=== PATIENT | female | born 1980 ===

== ENCOUNTER 2017-12-17 09:32 | Emergency (ER) | payer OTHER ==
[2017-12-17 09:32] VITALS: BMI 22.9
[2017-12-17 09:46] VITALS: TEMP 98.5; O2SAT 100
--- NOTE | 2017-12-17 10:15 | ED PDOC ---
Arrival/HPI - General Chief Complaint: ENT Problem Time Seen by Provider: 12/17/17 10:01 Historian: Patient - History of Present Illness Narrative History of Present Illness (Text): 12/17/17 10:11 37yr old female presents today with sore throat 6 days patient states she was seen at an urgent care center and diagnosed with strep throat 6 days ago. Patient states she was started on clindamycin and she took clindamycin for 4 days without improvement. Patient states 2 days ago she received a phone call from the urgent care center asking her how she was feeling. Patient states she told him she wasn't feeling better so they changed the antibiotic to amoxicillin 875 mg twice a day. Patient states she took the antibiotic for the first time yesterday. Patient presents today stating that she isn't feeling any better. Patient states she has only been taking 1 (200 mg) tablet of Motrin for pain without improvement. Patient denies trismus or drooling. Patient states she is able to swallow. She denies any difficulty with swallowing but states that she has a burning pain while swallowing. Patient also complaining of postnasal drip. Patient denies chest pain or shortness of breath. No other complaints Time/Duration: Other (6 days) Quality: Burning Severity Level: 4 Past Medical History - Provider Review Nursing Documentation Reviewed: Yes - Travel History Have you recently traveled outside [place] w/in the past 3 mons?: No - Infectious Disease Hx of Infectious Diseases: None - Tetanus Immunization Tetanus Immunization: Unknown - Reproductive Menopause: No - Cardiac Hx Cardiac Disorders: No - Pulmonary Hx Respiratory Disorders: No - Neurological Hx Neurological Disorder: No - HEENT Hx HEENT Disorder: No - Renal Hx Renal Disorder: No - Hematological/Oncological Hx Blood Disorders: No - Integumentary Hx Dermatological Disorder: No - Musculoskeletal/Rheumatological Hx Musculoskeletal Disorders: No - Gastrointestinal Hx Gastrointestinal Disorders: No - Genitourinary/Gynecological Hx Genitourinary Disorders: No - Psychiatric Hx Psychophysiologic Disorder: No Hx Substance Use: No - Surgical History Other/Comment: breast implants - Suicidal Assessment Feels Threatened In Home Enviroment: No Family/Social History - Physician Review Nursing Documentation Reviewed: Yes Family/Social History: Unknown Family HX Smoking Status: Current Some Days Smoker Hx Alcohol Use: Yes Hx Substance Use: No Allergies/Home Meds Allergies/Adverse Reactions: Allergies No Known Allergies Allergy (Verified 12/17/17 09:46) Home Medications: Home Meds Medication Instructions Recorded Confirmed Amoxicillin 875 mg PO BID 12/17/17 12/17/17 Review of Systems - Review of Systems Constitutional: absent: Fatigue, Fevers ENT: Sore Throat, Sinus Congestion Respiratory: absent: SOB, Cough Cardiovascular: absent: Chest Pain, Palpitations Gastrointestinal: absent: Abdominal Pain, Nausea, Vomiting Genitourinary Female: absent: Dysuria Skin: absent: Rash, Pruritis Psychiatric: absent: Anxiety, Depression, Suicidal Ideation Physical Exam Vital Signs Reviewed: Yes Vital Signs Temp Pulse Resp BP Pulse Ox 12/17/17 09:42 98.5 F 98 H 20 143/87 100 Temperature: Afebrile Blood Pressure: Normal Pulse: Regular Respiratory Rate: Normal Appearance: Positive for: Well-Appearing, Non-Toxic, Comfortable Pain Distress: None Mental Status: Positive for: Alert and Oriented X 3 - Systems Exam Head: Present: Atraumatic Mouth: Present: Moist Mucous Membranes, Normal Lips, Normal Tounge. No: Drooling, Trismus Pharnyx: Present: ERYTHEMA. No: EXUDATE, TONSILS ENLARGED, Peritonsilar Swelling, Uvular Deviation, Muffled/Hoarse Voice, Strider, Soft Palate/Uvular Edema Nose (External): Present: Atraumatic Nose (Internal): Present: Normal Inspection Neck: Present: Normal Range of Motion Respiratory/Chest: Present: Clear to Auscultation Cardiovascular: Present: Regular Rate and Rhythm Neurological: Present: GCS=15 Skin: Present: Warm, Dry, Normal Color. No: Rashes Psychiatric: Present: Alert, Oriented x 3 Medical Decision Making ED Course and Treatment: 12/17/17 10:22 Patient is nontoxic well appearing in no distress. Vital signs are stable Tolerating p.o. fluids. Motrin 600 mg p.o. Decadron 10 mg IM 12/17/17 Patient reassessment: Patient feeling better after medications, vital signs stable. Moist mucous membranes. I advised follow up with primary care physician within the next 2 days, advised to increase fluids take medications as prescribed and return if symptoms worsen persist or if new symptoms develop IMPRESSION; pharyngitis Motrin every 6 hours as needed for pain/fever reduction Increase fluids Continue amoxicillin twice daily x 10 days. Follow up primary care physician within the next 2 days Follow up with the ENT specialist within the next 2 days. Saltwater gargles, throat lozenges Return if symptoms worsen persist or if the symptoms develop; high fevers, increasing pain, swelling, difficulty breathing or swallowing, or if any other concerning symptoms develop. - Medication Orders Current Medication Orders: Discontinued Medications Dexamethasone (Decadron Inj) 10 mg IM STAT STA Stop: 12/17/17 10:12 Last Admin: 12/17/17 10:20 Dose: 10 mg IM Administration Charges Document 12/17/17 10:20 SE (Rec: 12/17/17 10:20 SE [id number]) Injection Site MAR Injection Site Right Gluteus Shahbaz Charges for Administration # of IM Administrations 1 Ibuprofen (Motrin Tab) 600 mg PO STAT STA Stop: 12/17/17 10:12 Last Admin: 12/17/17 10:20 Dose: 600 mg MAR Pain/Vitals Document 12/17/17 10:20 SE (Rec: 12/17/17 10:20 SE [id number]) Pain Reassessment Is This A Pain ReAssessment? No Sleep Is patient sleeping during reassessment? No Presence of Pain Presence of Pain Yes Pain Scale Used Pain Scale Used Numeric Disposition/Present on Arrival - Present on Arrival Any Indicators Present on Arrival: No History of DVT/PE: No History of Uncontrolled Diabetes: No Urinary Catheter: No History of Decub. Ulcer: No History Surgical Site Infection Following: None - Disposition Have Diagnosis and Disposition been Completed?: Yes Diagnosis: Pharyngitis Disposition: HOME/ ROUTINE Disposition Time: 10:30 Patient Plan: Discharge Patient Problems: Current Active Problems Problem Status Onset Pharyngitis Acute Condition: GOOD Discharge Instructions (ExitCare): Pharyngitis (ED) Additional Instructions: Motrin every 6 hours as needed for pain/fever reduction Increase fluids Continue amoxicillin twice daily x 10 days. Follow up primary care physician within the next 2 days Follow up with the ENT specialist within the next 2 days. Saltwater gargles, throat lozenges Return if symptoms worsen persist or if the symptoms develop; high fevers, increasing pain, swelling, difficulty breathing or swallowing, or if any other concerning symptoms develop. Prescriptions: Ibuprofen [Motrin] 600 mg PO Q6H PRN #20 tab PRN Reason: pain/fever reduction Referrals: [facility] [place]] - Follow up with primary Kelvin Gage DO [Staff Provider] - Follow up with primary Tirso Kumar DO [Staff Provider] - Follow up with primary Forms: [employer] [facility] ([place]ian), WORK NOTE
[2017-12-17 11:09] VITALS: BP 130/78; PULSE 78; RESP 18
== END 2017-12-17 11:08 | disposition home or self-care (01) ==
LOC: ED 09:32
DX: J02.9 Acute pharyngitis, unspecified (principal); F17.210 Nicotine dependence, cigarettes, uncomplicated
CPT/HCPCS: 96372; 99283; J1100